=== PATIENT | female | born 1955 | race Caucasian/White ===

== ENCOUNTER 2017-02-17 08:09 | Inpatient (IN) | payer OTHER ==
[~2017-02-17] VITALS: Ht 170.2 cm; Wt 83.5 kg
[2017-02-17] MEDS ORDERED: HYDR12.55 PO (08:23)
[2017-02-17] MEDS ORDERED: BUPR75TA5 PO (08:23)
[2017-02-17] MEDS ORDERED: ATOR1TAB21 PO (08:23)
[2017-02-17] MEDS ORDERED: OMEP40CA2 PO (08:23)
[2017-02-17] MEDS ORDERED: GABA-283 PO (08:23)
[2017-02-17] MEDS ORDERED: VENL100T PO (08:23)
[2017-02-17] MEDS ORDERED: LISI40TAB PO (08:23)
[2017-02-17] MEDS ORDERED: ONDANSETRON 4MG/2ML VIAL (J2405) IV ONE (08:45)
[2017-02-17] MEDS ORDERED: NS 1,000 ML IV ONE (08:45)
[2017-02-17] MEDS ORDERED: fentaNYL 100 MCG/2 ML INJECTION (J3010) IV ONE (08:45)
[2017-02-17] MEDS ORDERED: PANTOPRAZOLE 40MG INJ (PROTONIX) (C9113) IV ONE (08:45)
[2017-02-17 09:20] LABS: BASO % 0.3 % (0.0-1.0); EOS # 0.1 K/mm3 (0.0-0.50); EOS % 0.4 % (0.0-3.0); LARGE UNSTAINED CELL # 0.2 K/mm3 (0.0-0.4); LARGE UNSTAINED CELL % 1.1 % (0.0-4.0); LYMPH # 2.4 K/mm3 (1.5-4.5); LYMPH % 14.5 % (24.0-44.0); MEAN CORPUSCULAR HEMOGLOBIN 29.8 pg (27.0-33.0); MEAN CORPUSCULAR HGB CONC 33.8 g/dl (32.0-36.5); MEAN CORPUSCULAR VOLUME 88.1 fl (80.0-96.0); MONO # 0.8 K/mm3 (0.0-0.8); MONO % 4.7 % (0.0-5.0); NEUTROPHILS # 12.8 K/mm3 (1.8-7.7); PLATELET COUNT, AUTOMATED 399 k/mm3 (150-450); RED CELL DISTRIBUTION WIDTH 13.8 % (11.5-14.5); WHITE BLOOD COUNT 16.3 K/mm3 (4.0-10.0)
[2017-02-17 09:21] LABS: ADD MORPHOLOGY? NO
[2017-02-17 09:28] LABS: INR 0.94
[2017-02-17 09:35] LABS: ALBUMIN 3.7 GM/DL (3.2-5.2); ALBUMIN/GLOBULIN RATIO 1.03 (1.00-1.93); ALKALINE PHOSPHATASE 82 U/L (45-117); ALT/SGPT 18 U/L (12-78); ANION GAP 8 MEQ/L (8-16); AST/SGOT 14 U/L (15-37); BILIRUBIN,DIRECT < 0.1 MG/DL (0.0-0.2); BILIRUBIN,TOTAL 0.3 MG/DL (0.2-1.0); BLOOD UREA NITROGEN 27 MG/DL (7-18); CALCIUM LEVEL 9.3 MG/DL (8.5-10.1); CARBON DIOXIDE LEVEL 24 MEQ/L (21-32); CHLORIDE LEVEL 105 MEQ/L (98-107); CREATININE FOR GFR 1.15 MG/DL (0.55-1.02); GLOMERULAR FILTRATION RATE 51.4 (>51); GLUCOSE, FASTING 129 MG/DL (70-105); POTASSIUM SERUM 3.7 MEQ/L (3.5-5.1); SODIUM LEVEL 137 MEQ/L (136-145); TOTAL PROTEIN 7.3 GM/DL (6.4-8.2)
[2017-02-17] MEDS ORDERED: ISOVUE-370 76% 100ML VIAL (Q9967) As Ordered ONE (09:48)
--- NOTE | 2017-02-17 10:46 | REP ---
Clinical: Diffuse lower abdominal pain and rectal bleeding. Technique: Axial contrast enhanced images from the lung bases to the pubic symphysis using 100 ml Isovue 370 intravenous contrast material with coronal and sagittal re-formations. Findings: Acute infectious/inflammatory colitis involving the transverse colon. No obstruction. No free air. No free fluid or drainable collection/abscess. Scattered colonic diverticula noted without acute diverticulitis. Normal terminal ileum and appendix identified in the right lower quadrant. Liver demonstrates multiple hypodensities most compatible with cysts measuring up to 3.5 cm in the posterior segment right lobe. Cholelithiasis noted without acute cholecystitis. Spleen, pancreas, bilateral adrenal glands are normal. Kidneys include hypodensities which likely represent cysts and may be followed by ultrasound. Pelvis demonstrates normal bladder and evidence for prior hysterectomy. No ascites. No free air. No adenopathy. Vasculature without aneurysm or dissection. Surrounding musculoskeletal structures are intact. Lung bases are clear. Impression: Acute infectious/inflammatory colitis involving the transverse colon. Diverticulosis without acute diverticulitis. Cholelithiasis. Signed by Lupillo Kaur MD 02/17/2017 10:37 A
[2017-02-17] MEDS ORDERED: cefTRIAXone SOD 1 GM in D5W MINI-BAG PLUS 50 ML IV ONE (11:15)
[2017-02-17] MEDS ORDERED: metroNIDAZOLE 500 MG in APPROPRIATE DILUENT 1 EA IV ONE (11:15)
[2017-02-17] MEDS ORDERED: EFFE75CA75 PO (11:16)
[2017-02-17] MEDS ORDERED: HYDR25TAB PO (11:16)
[2017-02-17] MEDS ORDERED: NEUR800T PO (11:16)
[2017-02-17] MEDS: ONDANSETRON 4MG/2ML VIAL (J2405) IV PRN (12:49)
[2017-02-17 13:35] VITALS: BP 182/96
[2017-02-17] MEDS: NS 1,000 ML IV SCH (13:54)
[2017-02-17] MEDS: ATORVASTATIN 20 MG TAB PO SCH (14:07)
[2017-02-17] MEDS: amLODIPine 5 MG TAB PO SCH (14:07)
[2017-02-17] MEDS: OMEPRAZOLE 20 MG CAP PO SCH (14:07)
[2017-02-17] MEDS: MORPHINE 2 MG/ML 1ML SYRINGE IV PRN ×2 (14:08→19:59)
[2017-02-17 14:34] LABS: FERRITIN 19 NG/ML (8-252); PERCENT SATURATION 11.7 % (13.2-37.4); TOTAL IRON BINDING CAPACITY 368 UG/DL (250-450)
[2017-02-17 14:42] LABS: ERYTHROCYTE SEDIMENTATION RATE 49 mm/hr (0-30)
--- NOTE | 2017-02-17 14:57 | HPE ---
DATE OF ADMISSION: 02/17/2017 PRIMARY CARE PHYSICIAN: ANIKA Richardson PRIMARY SUBSTANCE ABUSE COUNSELOR: [facility] at [facility] in [place]. CHIEF COMPLAINT: Hematochezia and abdominal pain. HISTORY OF PRESENT ILLNESS: Ms. Machuca is a 61-year-old female with multiple past medical history who presented due to experiencing hematochezia as well as abdominal pain, which started last night around 10-11 p.m. The patient expressed that she has been diagnosed with Crohn's 4 years ago however she has not received treatment. The patient expressed that she had several colonoscopies done when she was in [place], [place]. Colonoscopies started at age 42 since her mother was diagnosed with colon cancer at age 50. They were performed every three years and each time they removed polyps which most of them were benign or precancerous. The patient's last colonoscopy was in 2012. However they did not indicated Crohn' s. The patient expressed that she was diagnosed based on her symptoms and they did perform any diagnostic tests for Crohn's disease The patient expressed that she has been experiencing abdominal pain, constipation and diarrhea for many year; however, according to her boyfriend, her symptoms became worse for the past several months. The patient has lost about 30 pounds for the past 3 months intentionally since she wants to lose weight, and she tried to do that by doing more exercise as well as cutting back on her carbohydrate and food intake. The patient expressed that yesterday around 10-11 p.m. she started having excruciating abdominal pain, mostly scattered throughout the abdomen. The patient expressed that she was also experiencing diarrhea every hour which at first was watery and brownish colored. However, around 7:00 a.m. she started noticing blood in her stool. The patient expressed that it was red, fresh blood. At first she thought it was because of the hemorrhoids that she has, however it continued and the patient came to the ER. The patient also expressed that she was nauseated, however, the patient denies vomiting. The patient denies any new diet and last night the patient had hot roast beef, which her boyfriend got from the store earlier. The patient denies using canned foods recently. The patient denies sick contacts. The patient denies fevers, chills or night sweats, however, the patient expressed that she felt lightheaded and dizziness after the diarrhea started. She also reported one episode of syncope when she was walking after several episodes of diarrhea; however, her boyfriend caught her and prevented her from falling. The patient expressed that it was only for 1 to 2 seconds, however she regained consciousness without being confused. The patient denies chest pain, palpitations, racing or skipping heartbeat. However, at the time of interview, the patient expressed that she had mild chest pain, possibly secondary to abdominal pain. She expressed that recently had video conference with the senior software development manager at [facility] who inform her that her GI symptoms could be related to her psychiatrical issues. ALLERGIES: No known drug allergies. HOME MEDICATIONS: - atorvastatin 20 mg by mouth daily - bupropion 75 mg by mouth at bedtime - gabapentin 800 mg by mouth at bedtime - chlorthalidone 25 mg by mouth daily - lisinopril 40 mg by mouth daily - omeprazole 40 mg by mouth daily - Effexor XR 225 mg by mouth daily PAST MEDICAL HISTORY: 1. Migraines. 2. Hypertension. 3. Questionable Crohn's disease. 4. Joint pain. 5. Broken jaw. 6. Mitral valve prolapse. 7. Anemia. 8. PTSD 9. Depression 10. Anxiety PAST SURGICAL HISTORY: 1. Vaginal hysterectomy. 2. Dilatation and curettage. 3. Multiple colonoscopies. The last one was in 2012 in [place], [place]. SOCIAL HISTORY: Patient lives with her boyfriend. Patient denies history of smoking. Patient does not drink at this time. Her last drink was a year and a half ago, however, before that the patient was drinking occasionally. Patient expressed that she smokes marijuana every night which helped her with her pain and her boyfriend mentioned that last night her pain was so bad that he gave the patient one dose of hydrocodone which helped her with the pain for three hours. The patient has one dog. The patient has not traveled outside of the [place]. The patient tried to eat healthy and tried to lose weight. The patient has two sons, ages 38 and 36 years old who are healthy. FAMILY HISTORY: The patient has three brothers. One of her brothers is admitted to [facility] due to prescription drug overdose. The other two brothers are healthy. The patient's mother in 2010 due to Alzheimer's. However, she had colon cancer, was diagnosed at age 50. The patient's father had stomach issues as well as a heart attack and at age 54. REVIEW OF SYSTEMS: GENERAL: The patient denies fever, chills, night sweats, however, the patient lost 30 pounds in three months intentionally. HEENT: Patient has lightheadedness and dizziness when she stands up from the sitting position. The patient had one episode of almost syncope early this morning. The patient denies problems with chewing food. The patient, however, has lost her appetite. NECK: The patient denies lumps, bumps, or decreased range of motion of her neck. HEART: Patient denies palpitations, racing and skipping heartbeat, however, the patient has some chest discomfort, which she described it as possibly related to her abdominal pain. ABDOMEN: The patient expressed that the pain is in all abdominal quadrants, 10 out of 10, sharp with radiation to the back. The patient has hematochezia, however, the patient denies vomiting, however, the patient has nausea. LUNGS: Patient denies shortness of breath, coughing. NEURO: Patient denies history of transient ischemic attack (TIA), cerebrovascular accident (CVA), or seizure type activities. PHYSICAL EXAMINATION: VITAL SIGNS: Temperature 97.8, pulse 86, respiratory rate 16, blood pressure 173/108, pulse 93. GENERAL APPEARANCE: Patient was lying in bed in acute distress due to abdominal pain. Patient was awake, alert and oriented to time, place and person. HEENT: Normocephalic, atraumatic. Pupils are equally reactive to light. Oral mucosa is moist. NECK: Soft, supple. No lymphadenopathy, no thyromegaly, no jugular venous distention (JVD). HEART: Regular rate and rhythm. Normal S1 and S2. LUNGS: Clear breath sounds bilaterally, good air movement. ABDOMEN: Soft. Tender to palpation in all quadrants, however, no guarding or rebound was noticed. No rash or lesions. Patient has positive bowel sounds in all quadrants. EXTREMITIES: No lower extremity edema. +2 pulses in both lower extremities. The patient has normal range of motion both upper and lower extremities. NEURO: Cranial nerves II through XII intact. No focal deficiencies. LABORATORY DATA: White blood cells 16.3, red blood cells 4.25, hemoglobin 12.7, hematocrit 37.5, MCV 88.1, MCH 29.8, MCHC 33.8, RDW 13.8, platelet count 399, neutrophil percentage 79, lymphocyte percentage 14.6, monocyte percentage 4.7, eosinophil percentage 0.4, basophil percentage 0.3, leukocyte percentage 1.1. PT 12.7, INR 0.94, PTT 30.9. Sodium 137, potassium 3.7, chloride 105, carbon dioxide 24, anion gap 8, BUN 27, creatinine 1.15, glomerular filtration rate (GFR) 51.4, fasting glucose 129, lactic acid 1.7, calcium 9.3, total bilirubin 0.3, direct bilirubin 7.1, AST 14, ALT 16, alkaline phosphatase 82, total protein 7.3, albumin 3.7, lipase 160. IMAGING: CT of abdomen and pelvis with IV contrast which indicated acute inflammation and inflammatory colitis involving the transverse colon. Patient has diverticulosis without acute diverticulitis as well as cholelithiasis. ASSESSMENT/PLAN: 1. Abdominal pain/hematochezia. This is possibly secondary to ischemic colitis vs. IBS however she has questionable diagnosis of Crohn's disease. We have ordered ESR, C-reactive protein as well as iron and B12. Lipase was negative. Although for inflammatory bowel disease ASCA and ANCA are note diagnostic test , however we have ordered these tests to monitor their level. Also, I have ordered stool calprotectin. At this time, we will make the patient nothing by mouth. We will start the patient on IV fluids. We have consulted surgery and we are waiting for further recommendations from surgery. Due to the patient having hematochezia, we have ordered hemoglobin and hematocrit every 6 hours. For pain management, we will continue the patient on Percocet and morphine as needed. Also due to the possibility of infection, I have ordered gastrointestinal (GI) panel and the results are pending at this time. At the ER, the patient received one dose of Flagyl and Rocephin. At this time, will continue the patient on Flagyl and Rocephin. 2. Hypertension. At home, patient was on lisinopril 40 mg daily as well as hydrochlorothiazide 25 mg by mouth daily, however we have stopped these medications due to abnormal renal functions and diarrhea and we have started the patient on Norvasc 5 mg by mouth daily. 3. Migraines. At this time, the patient is stable. 4. Hyperlipidemia. Will continue the patient on Lipitor 20 mg by mouth daily. 5. Lower extremities pain. The patient is on gabapentin 800 mg by mouth at bedtime. 6. Deep vein thrombosis (DVT) prophylaxis. We will continue the patient on thromboembolic deterrent stockings (TEDS) and sequentials due to gastrointestinal (GI) bleeding. 7. GI prophylaxis. Patient is on omeprazole 40 mg by mouth daily due to GI bleeding. 9. PTSD. patient is on Effexor and bupropion. 10. Depression/Anxiety. she is on Effexor and bupropion My preceptor for this patient encounter was Dr. Boo Mallory. The preceptor was physically present in the building during the encounter and was fully available. As needed, all aspects of the patient interview, examination, medical decision making process, and medical care plan development were reviewed and approved by the preceptor. The preceptor is aware and concurs with the plan as stated in the body of this note and will attest to such by his/her cosignature. I, Boo Mallory, have both independently examined this patient as well as reviewed the documentation. I have discussed in detail with the resident the findings and plan of treatment as documented in the residents documentation. I will continue to follow the patient and offer further guidance to the patients care as necessary. JUVENCIO
--- NOTE | 2017-02-17 15:12 | ECGEPIP ---
Stationary ECG Study [facility] Test Date: 2017-02-17 Pat Name: SHER VALDOVINOS Department: Room: [facility] Gender: F Pharmacy Services Representative: bridgette : 1955 Requested By: OMAR WALLACE Order Number: [id number] Reading MD: Portia Marsh Measurements Intervals [place] Rate: 56 P: 5 NC: 158 QRS: 3 QRSD: 88 T: 15 QT: 418 QTc: 405 Interpretive Statements SINUS BRADYCARDIA WNL EXCEPT RATE NO PRIOR Electronically Signed On 02-17-2017 15:11:59 EDT by Portia Marsh
[2017-02-17] MEDS: VENLAFAXINE **XR** 75MG CAPSULE PO SCH (15:40)
[2017-02-17] MEDS: PERCOCET 5MG/325MG TAB PO PRN (15:40)
[2017-02-17 16:00] VITALS: BP 168/99
--- NOTE | 2017-02-17 17:46 | CR ---
DATE OF CONSULTATION: 02/17/2017 REASON FOR CONSULTATION: Rectal bleeding. HISTORY OF PRESENT ILLNESS: The patient is a very pleasant 61-year-old woman who obtains most of her medical care through the [facility]. She reports that on the evening of February 16 at perhaps 10 o'clock in the evening, she noted the onset of some abdominal cramping with the onset of diarrhea. She reports having had watery diarrhea about every couple hours overnight. Then at about 7 o'clock in the morning on February 17, she had a small amount of diarrhea but also noted passage of some red blood. She was concerned by this new onset of bleeding. She apparently contacted the [facility] for guidance and was directed to the emergency department. She presented to the emergency department complaining of a constant sensation of bloating and crampiness with severe abdominal cramping before any bowel movement. She reports having had about five times total where she passed blood. On occasion this appeared more to contain some clots but also with red blood. She denies any prior history of similar bleeding. She has had several prior colonoscopies because of a history of colon cancer in her mother at age 50. Her last prior scope was in 2012, and she reports having had some polyps removed. She apparently has been told she has diverticulosis. She has been noted to have hemorrhoids during her colonoscopies but has not had any symptoms. She has told other providers of a possible history of Crohn's disease but admits that there has been no testing for this and she has never received any treatment for Crohn' s disease. In the emergency department, she had a set of laboratory studies showing a white count of 16,000 with 79% neutrophils and a hematocrit of 37%. Platelet count was normal. She had a CT scan that showed some thickening in her distal transverse colon. This was a fairly short segment, perhaps 15-20 cm, that was quite thickened circumferentially. Proximal and distal to this there were no significant changes identified. She was noted to have some diverticulosis elsewhere. The patient was admitted by the hospitalist, but I was asked by the emergency department physician to also evaluate the patient. MEDICATIONS The patient's current medications include: - lisinopril 40 mg by mouth daily - hydrochlorothiazide 25 mg by mouth daily - atorvastatin 20 mg by mouth daily - omeprazole 40 mg by mouth daily - bupropion hydrochloride 75 mg by mouth daily at bedtime - venlafaxine 75 mg tablets, three tablets by mouth daily - gabapentin 800 mg tablets once daily at bedtime ALLERGIES The patient denies any known drug allergies. SURGICAL HISTORY: Significant for treatment for a broken jaw as a youth. She had a dilation and curettage (D and C). She has undergone a vaginal hysterectomy and reports that her ovaries remain in place. She has not had any abdominal surgery otherwise. She has had several colonoscopies as noted previously. MEDICAL HISTORY The patient reports that she was told of a degree of mitral valve prolapse. She has not had any symptoms apparently associated with this. Her medical history includes a history of migraines. She has a history of hypertension. She does have a history of some joint pains and has previously had a diagnosis of anemia. SOCIAL HISTORY The patient is a lifetime nonsmoker. The patient denies any alcohol intake currently. She does apparently have a history of smoking some marijuana. FAMILY HISTORY The patient's mother at age 82 from Alzheimer's, but had been diagnosed with colon cancer and age 50. The patient's father had of a myocardial infarction (SD) in his mid 50s. REVIEW OF SYSTEMS Reveals no history of seizure or stroke. She denies any chest pain or palpitations. She has had no cough, wheezing or sputum production. She has had some occasional diarrhea in the past, but not with the severe cramping pain that she has now. She denies any dysuria or hematuria. She has not had a history of deep venous thrombosis (DVT) or pulmonary embolus. PHYSICAL EXAMINATION: GENERAL: Physical exam reveals a pleasant woman lying quietly on the hospital bed in no acute distress. She is alert, oriented and cooperative. SKIN: Is warm and dry. HEENT: Sclerae are anicteric. Mucous membranes are moist. NECK: Supple. HEART: Exam shows a regular rate and rhythm. LUNGS: Clear to auscultation. ABDOMEN: The abdomen is mildly full. She has positive bowel sounds throughout. She has no tympany to percussion. There is some minimal tenderness to percussion, which seems to be fairly diffuse and nonfocal. The abdomen is soft throughout without appreciable mass. Again, there is some mild diffuse tenderness but no point tenderness and no masses appreciated. I do not identify a hernia. EXTREMITIES: Are without edema. LABORATORY DATA: Her laboratory studies from early in the day show a CBC with white count of 16,000, and 79% neutrophils with 14% lymphocytes. Hemoglobin is 13 with a hematocrit of 38, and her platelet count is 399,000. Her PT/INR and PTT are normal. Her chemistry profile shows a sodium of 137, potassium 3.7, chloride 105, CO2 of 24, BUN of 27, creatinine 1.15 and glucose of 129. Liver function tests are normal with an albumin of 3.7 and total protein of 7.3. Lipase was 160. C-reactive protein was only 1.12. She had a troponin of less than 0.02 at 1417 today. IMAGING: Her CT images I reviewed independently. She has an inflamed segment of her distal transverse colon. There is no evidence of free air or free fluid. IMPRESSION: 1. Sudden onset of abdominal cramping with diarrhea and now rectal bleeding. This history sounds quite typical for ischemic colitis. 2. Hypertension. 3. Hyperlipidemia. 4. Migraine headaches. RECOMMENDATIONS: At this point I would recommend close observation of the patient's bleeding. If this represents typical ischemic colitis, then I would anticipate that the bleeding will cease spontaneously and her symptoms will resolve and her colon will heal. Certainly there is nothing about her history to suggest ulcerative colitis or Crohn's disease as an acute onset at this time. Antibiotics are not an unreasonable addition to her treatment, given the possibility that this could also represent some form of infectious colitis, although with the fairly limited extent of involvement, I think this is a little less likely than an ischemic colitis event. I will be happy to check on the patient tomorrow and see how things are progressing. I doubt that she will require any sort of surgical intervention during this hospital stay. JUVENCIO
[2017-02-17 18:38] VITALS: BP 148/99
[2017-02-17 20:00] VITALS: BP 148/98
[2017-02-17] MEDS: GABAPENTIN 400 MG CAP PO SCH (20:07)
[2017-02-17] MEDS: buPROPion 75 MG TAB PO SCH (20:12)
[2017-02-17] MEDS: metroNIDAZOLE 500 MG in APPROPRIATE DILUENT 1 EA IV SCH (22:39)
[2017-02-17 23:59] VITALS: BP 143/96
[2017-02-18] MEDS: ACETAMINOPHEN TAB 650MG DOSE (2X325MG) PO PRN ×2 (00:32→16:06)
[2017-02-18] MEDS ORDERED: cefTRIAXone SOD 1 GM in D5W MINI-BAG PLUS 50 ML IV SCH (02:00)
[2017-02-18 04:45] VITALS: BP 135/91
[2017-02-18 05:15] LABS: BASO % 0.3 % (0.0-1.0); EOS # 0.1 K/mm3 (0.0-0.50); EOS % 0.8 % (0.0-3.0); LARGE UNSTAINED CELL # 0.2 K/mm3 (0.0-0.4); LARGE UNSTAINED CELL % 0.9 % (0.0-4.0); LYMPH # 2.3 K/mm3 (1.5-4.5); LYMPH % 12.8 % (24.0-44.0); MEAN CORPUSCULAR HEMOGLOBIN 29.6 pg (27.0-33.0); MEAN CORPUSCULAR HGB CONC 33.5 g/dl (32.0-36.5); MEAN CORPUSCULAR VOLUME 88.2 fl (80.0-96.0); MONO % 5.7 % (0.0-5.0); NEUTROPHILS # 13.3 K/mm3 (1.8-7.7); NEUTROPHILS % 79.5 % (36.0-66.0); PLATELET COUNT, AUTOMATED 335 k/mm3 (150-450); RED CELL DISTRIBUTION WIDTH 13.9 % (11.5-14.5); WHITE BLOOD COUNT 16.8 K/mm3 (4.0-10.0)
[2017-02-18 05:33] LABS: ALBUMIN 3.3 GM/DL (3.2-5.2); ALBUMIN/GLOBULIN RATIO 0.83 (1.00-1.93); ALKALINE PHOSPHATASE 75 U/L (45-117); ALT/SGPT 15 U/L (12-78); ANION GAP 5 MEQ/L (8-16); AST/SGOT 8 U/L (15-37); BILIRUBIN,TOTAL 0.4 MG/DL (0.2-1.0); BLOOD UREA NITROGEN 11 MG/DL (7-18); CALCIUM LEVEL 8.1 MG/DL (8.5-10.1); CARBON DIOXIDE LEVEL 30 MEQ/L (21-32); CHLORIDE LEVEL 106 MEQ/L (98-107); CREATININE FOR GFR 0.83 MG/DL (0.55-1.02); GLOMERULAR FILTRATION RATE > 60.0 (>51); GLUCOSE, FASTING 123 MG/DL (70-105); MAGNESIUM LEVEL 1.9 MG/DL (1.8-2.4); POTASSIUM SERUM 3.6 MEQ/L (3.5-5.1); SODIUM LEVEL 141 MEQ/L (136-145); TOTAL PROTEIN 7.3 GM/DL (6.4-8.2)
[2017-02-18 05:38] LABS: ERYTHROCYTE SEDIMENTATION RATE 58 mm/hr (0-30)
[2017-02-18] MEDS: NS 1,000 ML IV SCH (06:17)
[2017-02-18] MEDS: metroNIDAZOLE 500 MG in APPROPRIATE DILUENT 1 EA IV SCH ×3 (06:17→21:37)
[2017-02-18] MEDS: MEROPENEM INJ 1 GM in D5W MINI-BAG PLUS 100 ML IV SCH ×3 (07:36→23:39)
[2017-02-18] MEDS: MORPHINE 2 MG/ML 1ML SYRINGE IV PRN (07:36)
[2017-02-18] MEDS: ONDANSETRON 4MG/2ML VIAL (J2405) IV PRN (07:53)
[2017-02-18 08:00] VITALS: BP 146/112
--- NOTE | 2017-02-18 10:15 | IPN ---
DATE OF SERVICE: 02/18/2017 The patient this morning reports that she feels better. She has not been having the abdominal cramping that she noted yesterday. She has been passing some flatus and still feels somewhat bloated. She has not had any further rectal bleeding. VITAL SIGNS: Revealed that she has been afebrile for the last 24 hours with a maximum temperature (Tmax) of 99.1 degrees. Her pulse has been between 65 and 95. Her blood pressure is reasonable, and her pulse oximetry is normal on room air. INTAKE AND OUTPUT: Show 1700 mL in and 1200 mL out on 02/17/2017. PHYSICAL EXAMINATION: Reveals her to be pleasant and alert. She does not appear in discomfort. She moves readily without apparent hesitation. Her abdomen is perhaps mildly distended versus mildly obese. She has bowel sounds present. The abdomen is soft without definite tenderness. LABORATORY STUDIES: Reveal a white count of 16.8, similar to her level on 02/17/2017 of 16.3. Hematocrit is 36, and her neutrophil count is 80%, also similar to the number on 02/17/2017. Her chemistry profile is normal with the exception of a slight elevation of her glucose to 123. C-reactive protein is 7.16, which is mildly elevated from 1.12 on 02/17/2017. She had a lactic acid this morning of 1.5. IMPRESSION: Ischemic colitis without any further bleeding. RECOMMENDATIONS: At this point, the patient appears to be improving. I would anticipate this episode to continue to improve with healing of that segment of her transverse colon. I would be in favor of starting her on some liquids if her testing as ordered by the hospitalist will allow. JUVENCIO
[2017-02-18] MEDS ORDERED: ISOVUE-370 76% 100ML VIAL (Q9967) As Ordered ONE (10:18)
[2017-02-18] MEDS: ATORVASTATIN 20 MG TAB PO SCH (11:17)
[2017-02-18] MEDS: VENLAFAXINE **XR** 75MG CAPSULE PO SCH (11:17)
[2017-02-18] MEDS: OMEPRAZOLE 20 MG CAP PO SCH (11:17)
[2017-02-18] MEDS: amLODIPine 5 MG TAB PO SCH (11:18)
[2017-02-18] MEDS: PERCOCET 5MG/325MG TAB PO PRN ×2 (11:21→20:25)
[2017-02-18 12:00] VITALS: BP 146/101
--- NOTE | 2017-02-18 13:24 | REP ---
Clinical: Colitis. Rule out ischemic bowel. Technique: Axial contrast enhanced images from the lung bases to the pubic symphysis using 100 ml Isovue 370 intravenous contrast material with imaging in the late arterial phase of enhancement. Coronal and sagittal re-formations are obtained. Comparison: CT abdomen and pelvis dated 02/17/2017. Findings: The abdominal aorta and branch vessels including celiac axis, superior mesenteric artery, solitary bilateral renal arteries, inferior mesenteric artery and bifurcation to common as well as internal and external iliac arteries demonstrate normal luminal diameter and enhancement. No atherosclerotic changes are appreciated and no areas of narrowing, stenosis, or arterial attenuation appreciated. The abdominal aorta is without aneurysm or dissection. Liver demonstrates stable right lobe hypodensity measuring 3.3 cm compatible with cyst and smaller subcentimeter cysts without focal hepatic lesion. Spleen, pancreas, bilateral adrenal glands are normal. Small renal hypodensities compatible with cysts measure up to 1.6 cm in the left lower pole. Cholelithiasis noted without CT evidence for acute cholecystitis. Evaluation of the enteric system demonstrates mural thickening and pericolonic inflammatory changes involving the transverse colon consistent with infectious/inflammatory colitis. No bowel obstruction. No free air. No significant free fluid or drainable collection. Pelvis demonstrates collapsed bladder and evidence of prior hysterectomy. Few scattered sigmoid diverticula noted without acute diverticulitis. No intraperitoneal or retroperitoneal adenopathy. Lung bases are clear. Visualized heart and pericardium normal. Small hiatal hernia at the gastroesophageal junction. Surrounding musculoskeletal structures are intact. Impression: 1. Normal enhancement and appearance to the aorta and arterial vasculature within the abdomen and pelvis. 2. Infectious/inflammatory colitis involving the transverse colon. 3. Small hiatal hernia. 4. Chronic changes including hepatic and renal cysts, and few scattered sigmoid diverticula without acute diverticulitis. Signed by Lupillo Kaur MD 02/18/2017 01:17 P
--- NOTE | 2017-02-18 14:37 | IPNPDOC ---
Text Note Date of Service The patient was seen on 02/18/17. NOTE Subjective: Patient is a 61 year old female with a PMHx of HTN, Mitral valve prolapse, Migraine, Anemia, Depression / Anxiety / PTSD and Questionable Crohn' s Disease who presented to the ER with complaints of abdominal pain and rectal bleeding. Patient has had several colonoscopies in the past, most recent of which is 2012 and was found to have pre-cancerous lesions that were removed. She noted that after this point she had similar symptoms a few years later and was told she had Crohn's, but no biopsies taken. She presented with abdominal pain, that progressed to diarrhea with blood in her stool. She was admitted for colitis and hospitalist service was called. Patient was seen and examined at the bedside. She notes her abdominal pain has been improving. She has not had a bowel movement today. Notes that she is passing gas. She did not a single episode of vomiting this morning. Objective: Vitals (See below) General: Lying in bed, no acute distress, comfortable, AAOx3 HEENT: NC, AT CVS: RRR, +S1S2 Lungs: Fair air entry b/l, -w/r/r Abdomen: Soft, ND, NT, +BSx4 Extremities: +PPx4, - Edema, - Calf tenderness Assessment and plan: 1. Abdominal pain with rectal bleeding - possibly 2/2 Colitis, Inflammatory bowel disease, Ischemic colitis - Presented with abdominal pain, bloody diarrhea - Physical initially revealed diffuse abdominal tenderness without rebound / rigidity that has resolved - Leukocytosis has persisted and CRP has trended up - Cultures remain negative, GI panel negative - CTA abdomen / pelvis 02/18: infectious / inflammatory colitis involving the transverse colon, no diverticulitis, positive diverticulosis, normal aorta and vasculature - s/p Ceftriaxone and Flagyl; c/w Meropenem (Day #2 of antibiotics) - c/w IV fluid hydration - Will start liquid clear diet today and advance as tolerated - Will discontinue Morphine, c/w Percocet - Dr. Desai (Surgery) on consult; appreciate their input 2. HTN - BP moderately controlled - Lisinopril and HCTZ on hold (re: mild elevation in Cr) - c/w Norvac 5; will increase to 10 3. Migraine headaches - c/w Tylenol PRN 4. DLP - c/w Lipitor 5. Neuropathy - c/w Gabapentin 6. PTSD / Depression / Anxiety - c/w Venlafaxine and Bupropion 7. GI prophylaxis - c/w Protonix 8. DVT prophylaxis - c/w SCDs VS,Fishbone, I+O VS, Fishbone, I+O Laboratory Tests 02/17/17 18:53 02/18/17 00:23 02/18/17 04:55 Red Blood Count 4.03, Mean Corpuscular Volume 88.2, Mean Corpuscular Hemoglobin 29.6, Mean Corpuscular Hemoglobin Concent 33.5, Red Cell Distribution Width 13.9 , Neutrophils (%) (Auto) 79.5 H, Lymphocytes (%) (Auto) 12.8 L, Monocytes (%) ( Auto) 5.7 H, Eosinophils (%) (Auto) 0.8, Basophils (%) (Auto) 0.3, Neutrophils # (Auto) 13.3 H, Lymphocytes # (Auto) 2.3, Monocytes # (Auto) 1.0 H, Eosinophils # (Auto) 0.1, Basophils # (Auto) 0.0, Calcium Level 8.1 L, Aspartate Amino Transf (AST/SGOT) 8 L, Alanine Aminotransferase (ALT/SGPT) 15, Alkaline Phosphatase 75, Total Bilirubin 0.4, Total Protein 7.3, Albumin 3.3 02/18/17 12:38 Vital Signs Date Time Temp Pulse Resp B/P (MAP) Pulse Ox O2 Delivery O2 Flow Rate FiO2 02/18/17 12:00 98.0 76 18 146/101 (116) 98 Room Air I&O- Last 24 Hours up to 6 AM 02/18/17 06:00 Intake Total 2380 ml Output Total 1200 ml Balance 1180 ml ANGELA DELACRUZ MD Feb 18, 2017 14:37
[2017-02-18] MEDS ORDERED: NS 1,000 ML IV SCH (14:45)
[2017-02-18 16:00] VITALS: BP 146/102
[2017-02-18 20:10] VITALS: BP 121/85
[2017-02-18] MEDS: buPROPion 75 MG TAB PO SCH (20:25)
[2017-02-18] MEDS: GABAPENTIN 400 MG CAP PO SCH (20:26)
[2017-02-19] VITALS (7 sets, daily range): BP systolic 139–158; BP diastolic 84–95
[2017-02-19] MEDS: metroNIDAZOLE 500 MG in APPROPRIATE DILUENT 1 EA IV SCH (05:11)
[2017-02-19 05:25] LABS: BASO % 0.2 % (0.0-1.0); EOS # 0.2 K/mm3 (0.0-0.50); EOS % 0.7 % (0.0-3.0); LARGE UNSTAINED CELL # 0.2 K/mm3 (0.0-0.4); LARGE UNSTAINED CELL % 0.9 % (0.0-4.0); LYMPH # 2.3 K/mm3 (1.5-4.5); LYMPH % 10.7 % (24.0-44.0); MEAN CORPUSCULAR HEMOGLOBIN 29.8 pg (27.0-33.0); MEAN CORPUSCULAR HGB CONC 33.9 g/dl (32.0-36.5); MEAN CORPUSCULAR VOLUME 88.1 fl (80.0-96.0); MONO # 0.8 K/mm3 (0.0-0.8); NEUTROPHILS # 16.4 K/mm3 (1.8-7.7); NEUTROPHILS % 83.6 % (36.0-66.0); PLATELET COUNT, AUTOMATED 319 k/mm3 (150-450); RED CELL DISTRIBUTION WIDTH 14.1 % (11.5-14.5); WHITE BLOOD COUNT 19.6 K/mm3 (4.0-10.0)
[2017-02-19 05:36] LABS: ALBUMIN 2.9 GM/DL (3.2-5.2); ALBUMIN/GLOBULIN RATIO 0.76 (1.00-1.93); ALKALINE PHOSPHATASE 68 U/L (45-117); ALT/SGPT 15 U/L (12-78); ANION GAP 7 MEQ/L (8-16); AST/SGOT 10 U/L (15-37); BILIRUBIN,TOTAL 0.4 MG/DL (0.2-1.0); BLOOD UREA NITROGEN 6 MG/DL (7-18); CALCIUM LEVEL 7.9 MG/DL (8.5-10.1); CARBON DIOXIDE LEVEL 27 MEQ/L (21-32); CHLORIDE LEVEL 106 MEQ/L (98-107); CREATININE FOR GFR 0.63 MG/DL (0.55-1.02); GLOMERULAR FILTRATION RATE > 60.0 (>51); GLUCOSE, FASTING 114 MG/DL (70-105); MAGNESIUM LEVEL 1.9 MG/DL (1.8-2.4); POTASSIUM SERUM 3.3 MEQ/L (3.5-5.1); SODIUM LEVEL 140 MEQ/L (136-145); TOTAL PROTEIN 6.7 GM/DL (6.4-8.2)
[2017-02-19 06:05] LABS: ERYTHROCYTE SEDIMENTATION RATE 57 mm/hr (0-30)
[2017-02-19] MEDS ORDERED: POTASSIUM CHLORIDE 10 MEQ SR TABLET PO ONE (07:00)
[2017-02-19] MEDS: PERCOCET 5MG/325MG TAB PO PRN ×3 (07:32→20:59)
[2017-02-19] MEDS: ONDANSETRON 4MG/2ML VIAL (J2405) IV PRN (07:32)
[2017-02-19] MEDS: OMEPRAZOLE 20 MG CAP PO SCH (08:31)
[2017-02-19] MEDS: VENLAFAXINE **XR** 75MG CAPSULE PO SCH (08:31)
[2017-02-19] MEDS: amLODIPine 5 MG TAB PO SCH (08:31)
[2017-02-19] MEDS: ATORVASTATIN 20 MG TAB PO SCH (08:31)
[2017-02-19] MEDS: MEROPENEM INJ 1 GM in D5W MINI-BAG PLUS 100 ML IV SCH ×2 (08:32→16:01)
[2017-02-19] MEDS ORDERED: SUMAtriptan SUCCINATE 25 MG TAB PO ONE (09:00)
[2017-02-19] MEDS ORDERED: hydroCHLOROthiazide 12.5 MG CAPSULE PO SCH (09:00)
[2017-02-19] MEDS ORDERED: EFFE150C PO (09:13)
[2017-02-19] MEDS ORDERED: OMEP20CA3 PO (09:13)
[2017-02-19] MEDS ORDERED: BUPR100T3 PO (09:13)
[2017-02-19 10:01] LABS: VITAMIN B12 LEVEL 587 PG/ML (247-911)
[2017-02-19] MEDS ORDERED: SLF 3 ML SYR IV PRN (11:00)
[2017-02-19] MEDS: SLF 3 ML SYR IV SCH ×2 (12:15→21:00)
--- NOTE | 2017-02-19 14:16 | IPN ---
DATE OF VISIT: 02/19/2017 SUBJECTIVE: Ms. Machuca is a 61-year-old who was seen and examined at the bedside. The patient expressed that she feels better today. However, she has continued to have cramping of her abdomen. The patient tolerating full liquid diet well. We have put an order to advance the diet, as the patient tolerated. The patient had one episode of bowel movement today, which has blood in it. The patient has been seen by Dr. Dobbs (general surgeon). At this time, the patient is on intravenous (IV) antibiotic. Yesterday, we have performed a CT angiogram of abdomen and pelvis, which indicated normal enhancement and appearance to the aorta and arterial vasculature within the abdomen and pelvis, and it indicated the possibility of infectious/inflammatory colitis involving the transverse colon. The patient denies nausea or vomiting. The patient denies palpitation, racing or skipping heartbeat, shortness of breath. OBJECTIVE: VITAL SIGNS: Temperature 96.3, pulse 83, respiratory rate 18, blood pressure 158/95, pulse oximetry 97 on room air. TOTAL INTAKE: From yesterday, 2461. TOTAL OUTPUT: 1950. GENERAL APPEARANCE: The patient was lying in bed in acute distress. The patient was awake, alert, and oriented to time, place, and person. HEENT: Normocephalic, atraumatic. Pupils are equally reactive to light. Oral mucosa is moist. NECK: Soft, supple. No lymphadenopathy, no thyromegaly, no jugular venous distention (JVD). HEART: Regular rate and rhythm. Normal S1 and S2. LUNGS: Clear breath sounds bilaterally, good air movement. ABDOMEN: Soft. Tender to palpation, mostly on the lower abdominal quadrants and the left upper quadrant. The patient has positive bowel sounds in all quadrants. EXTREMITIES: +2 pulses in both lower extremities. No lower extremity edema. Normal range of motion both upper and lower extremities. LABORATORY DATA: White blood cells 19.6, red blood cells 3.84, hemoglobin 11.5, hematocrit 33.9, MCV 88.1, MCH 29.8, MCHC 33.9, RDW 14.1, platelet count 319, neutrophil percentage 83.6, lymphocyte percentage 10.7, monocyte percentage 4, eosinophil percentage 0.7, basophil percentage 0.2, leukocyte percentage 0.9. Sodium 140, potassium 3.3, chloride 106, carbon dioxide 27, anion gap 7, BUN 6, creatinine 0.63, glomerular filtration rate more than 60, fasting glucose 114, calcium 7.9, magnesium 1.9, total bilirubin 0.4, AST 10, ALT 15, alkaline phosphatase 68, C-reactive protein 9.52, total protein 6.7, albumin 2.9. IMAGING TECHNIQUE: CT angiogram of abdomen and pelvis, which indicated normal enhancement and appearance to the aorta and arterial vasculature within the abdomen and pelvis, infectious/inflammatory colitis involving the transverse colon, a small hiatal hernia, chronic changes including hepatic and renal cyst and a few scattered sigmoid diverticula without acute diverticulitis. ASSESSMENT/PLAN: 1. Abdominal pain with gastrointestinal (GI) bleeding. This could be secondary to ischemic colitis versus infectious/inflammatory colitis. Today, the patient' s white blood cells, as well as C-reactive protein, has increased. Erythrocyte sedimentation rate (ESR) has not changed much compared to yesterday. We have consulted Dr. Aguero. Also, we have stopped the metronidazole. However, we will continue with meropenem. The patient was on IV fluid. However, we have stopped IV fluid since the patient can tolerate by mouth. At this point, we are waiting for further recommendation from Dr. Aguero; and based on surgery, we are following the patient; and this could be secondary to ischemic colitis, and we have no further recommendation from surgery. For pain management, we will continue the patient on Percocet. Also, the patient is on acetaminophen; and for nausea, we will continue the patient on Zofran. Also, will continue monitoring the patient's hemoglobin and hematocrit one more time. However, at this time, the patient's hemoglobin and hematocrit are stable, and we will continue monitoring the hemoglobin and hematocrit tomorrow. 2. Gastrointestinal (GI) prophylaxis due to GI bleeding. We will continue the patient on Prilosec 40 mg by mouth daily. 3. Hypertension. At this point, we will continue the patient on Norvasc 5 mg by mouth daily. Also, we have restarted the patient on hydrochlorothiazide 12.5 mg by mouth daily. 3. Migraine headaches. Today the patient experienced one episode of migraine headache. The patient was on Tylenol as needed. However, it did not help. Therefore, the patient received one dose of sumatriptan succinate 25 mg by mouth once. We will continue monitoring the patient for any abnormal symptoms. 4. Hyperlipidemia. The patient is on Lipitor. 5. Neuropathy. The patient is on gabapentin. 6. Posttraumatic stress disorder (PTSD). We will continue the patient on venlafaxine and bupropion. 7. Depression and anxiety. We will continue the patient on venlafaxine and bupropion. 8. Deep vein thrombosis (DVT) prophylaxis. Due to gastrointestinal (GI) bleeding, the patient is on thromboembolic deterrents (TEDs) and sequentials. My preceptor for this patient encounter was Boo Mallory MD. The preceptor was physically present in the building during the encounter and was fully available. As needed, all aspects of the patient interview, examination, medical decision making process, and medical care plan development were reviewed and approved by the preceptor. The preceptor is aware and concurs with the plan as stated in the body of this note and will attest to such by his/her cosignature. I, Boo Mallory, have both independently examined this patient as well as reviewed the documentation. I have discussed in detail with the resident the findings and plan of treatment as documented in the residents documentation. I will continue to follow the patient and offer further guidance to the patients care as necessary during this hospital stay. JUVENCIO
[2017-02-19] MEDS: buPROPion (WELLBUTRIN SR) 100 MG SR TAB PO SCH (20:59)
[2017-02-19] MEDS: GABAPENTIN 400 MG CAP PO SCH (21:00)
[2017-02-20 02:00] VITALS: BP 127/84
[2017-02-20] MEDS: SLF 3 ML SYR IV SCH ×3 (05:36→20:49)
[2017-02-20 06:00] VITALS: BP 116/75
[2017-02-20 06:38] LABS: BASO % 0.3 % (0.0-1.0); EOS # 0.3 K/mm3 (0.0-0.50); EOS % 1.4 % (0.0-3.0); LARGE UNSTAINED CELL # 0.2 K/mm3 (0.0-0.4); LARGE UNSTAINED CELL % 1.1 % (0.0-4.0); LYMPH # 2.9 K/mm3 (1.5-4.5); LYMPH % 14.2 % (24.0-44.0); MEAN CORPUSCULAR HEMOGLOBIN 29.4 pg (27.0-33.0); MEAN CORPUSCULAR HGB CONC 32.8 g/dl (32.0-36.5); MEAN CORPUSCULAR VOLUME 89.5 fl (80.0-96.0); MONO # 0.9 K/mm3 (0.0-0.8); MONO % 4.8 % (0.0-5.0); NEUTROPHILS # 14.9 K/mm3 (1.8-7.7); NEUTROPHILS % 78.2 % (36.0-66.0); PLATELET COUNT, AUTOMATED 348 k/mm3 (150-450); RED CELL DISTRIBUTION WIDTH 14.2 % (11.5-14.5); WHITE BLOOD COUNT 19.1 K/mm3 (4.0-10.0)
[2017-02-20] MEDS ORDERED: SUMAtriptan SUCCINATE 25 MG TAB PO ONE (06:45)
[2017-02-20 06:59] LABS: ALBUMIN 3.1 GM/DL (3.2-5.2); ALBUMIN/GLOBULIN RATIO 0.72 (1.00-1.93); ALKALINE PHOSPHATASE 73 U/L (45-117); ALT/SGPT 17 U/L (12-78); ANION GAP 5 MEQ/L (8-16); AST/SGOT 15 U/L (15-37); BILIRUBIN,TOTAL 0.5 MG/DL (0.2-1.0); BLOOD UREA NITROGEN 6 MG/DL (7-18); CALCIUM LEVEL 8.7 MG/DL (8.5-10.1); CARBON DIOXIDE LEVEL 33 MEQ/L (21-32); CHLORIDE LEVEL 100 MEQ/L (98-107); CREATININE FOR GFR 0.77 MG/DL (0.55-1.02); GLOMERULAR FILTRATION RATE > 60.0 (>51); GLUCOSE, FASTING 98 MG/DL (70-105); POTASSIUM SERUM 3.9 MEQ/L (3.5-5.1); SODIUM LEVEL 138 MEQ/L (136-145); TOTAL PROTEIN 7.4 GM/DL (6.4-8.2)
[2017-02-20 07:13] LABS: ERYTHROCYTE SEDIMENTATION RATE 65 mm/hr (0-30)
[2017-02-20] MEDS: VENLAFAXINE **XR** 75MG CAPSULE PO SCH (08:32)
[2017-02-20] MEDS: OMEPRAZOLE 20 MG CAP PO SCH (08:33)
[2017-02-20] MEDS: ATORVASTATIN 20 MG TAB PO SCH (08:33)
[2017-02-20] MEDS: amLODIPine 5 MG TAB PO SCH (08:33)
[2017-02-20] MEDS: PERCOCET 5MG/325MG TAB PO PRN ×3 (08:36→20:56)
--- NOTE | 2017-02-20 08:38 | IPNPDOC ---
Text Note Date of Service The patient was seen on 02/20/17. NOTE Subjective: Patient states she is having full liquid diet and is occasionally not tolerating it. She states that her abdominal pain is significantly improved however still has some residual pain Objective: Vitals: (see below) General: No acute distress, laying comfortably in bed. HEENT: Moist mucous membranes. Neck: No JVD or lymphadenopathy Cardiac: RRR, No murmurs Pulm: Clear to auscultation b/l. No wheezing, rhonchi Abd: Tenderness to palpation in the lower quadrants and left upper quadrant. No rebound, guarding, or rigidity/ND + BS Ext: No edema or cyanosis Labs (see below) Images: CTA abdomen and pelvis on 02/18/17 Impression: 1. Normal enhancement and appearance to the aorta and arterial vasculature within the abdomen and pelvis. 2. Infectious/inflammatory colitis involving the transverse colon. 3. Small hiatal hernia. 4. Chronic changes including hepatic and renal cysts, and few scattered sigmoid diverticula without acute diverticulitis. CT abdomen and pelvis on 02/17/17 Impression: Acute infectious/inflammatory colitis involving the transverse colon. Diverticulosis without acute diverticulitis. Cholelithiasis. Assessment/Plan 1. Abdominal pain and hematochezia secondary to colitis. Evaluated by surgery with a likely etiology of ischemic colitis. Patient did have a CTA of the abdomen and pelvis with no abnormalities with a enhancements of the arterial vasculature. She was initially started on Rocephin and Flagyl and change to meropenem. Dr. Aguero had been consulted as the CRP and WBCs have been worsening, with recommendations to discontinue antibiotics as it is unlikely to be infectious in nature. We will continue to monitor the patient's clinical status. We'll also continue monitoring hemoglobin. No need for transfusion at this time. 2. Hematochezia- likely secondary to colitis. We'll continue to monitor hemoglobin. Had been placed on Protonix. Will likely need outpatient colonoscopy once abdominal pain resolves. 3. Hypertension- controlled. Will discontinue HCTZ for now. 4. History of migraines 5. Hyperlipidemia on statin 6. Neuropathy on gabapentin 7. Postherpetic stress disorder continue home meds DVT prophy: SCDs VS,Fishbone, I+O VS, Fishbone, I+O Laboratory Tests 02/19/17 12:44 02/20/17 05:48 Red Blood Count 4.01, Mean Corpuscular Volume 89.5, Mean Corpuscular Hemoglobin 29.4, Mean Corpuscular Hemoglobin Concent 32.8, Red Cell Distribution Width 14.2 , Neutrophils (%) (Auto) 78.2 H, Lymphocytes (%) (Auto) 14.2 L, Monocytes (%) ( Auto) 4.8, Eosinophils (%) (Auto) 1.4, Basophils (%) (Auto) 0.3, Neutrophils # ( Auto) 14.9 H, Lymphocytes # (Auto) 2.9, Monocytes # (Auto) 0.9 H, Eosinophils # (Auto) 0.3, Basophils # (Auto) 0.0, Calcium Level 8.7, Aspartate Amino Transf ( AST/SGOT) 15, Alanine Aminotransferase (ALT/SGPT) 17, Alkaline Phosphatase 73, Total Bilirubin 0.5, Total Protein 7.4, Albumin 3.1 L Vital Signs Date Time Temp Pulse Resp B/P (MAP) Pulse Ox O2 Delivery O2 Flow Rate FiO2 02/20/17 06:00 97.4 79 16 116/75 (89) 98 Room Air I&O- Last 24 Hours up to 6 AM 02/20/17 05:59 Intake Total 1060 ml Output Total 2525 ml Balance -1465 ml YAJAIRA OLIVAS MD Feb 20, 2017 08:38
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
[2017-02-20 10:27] VITALS: BP 144/97
[2017-02-20 14:00] VITALS: BP 133/94
--- NOTE | 2017-02-20 18:04 | IPN ---
DATE: 02/20/2017 Paulette seems to be doing better. She states she had a bowel movement today that was somewhat semi-formed but did not have as much blood. It was more brown than red. She is hungry. She has been tolerating a soft diet but would like to try some regular food. She has not had any bright red blood per rectum. LABORATORY DATA: White count is 19.1, hemoglobin 11.6, hematocrit 35.9, platelets 348. Sodium 138, potassium 3.9, chloride 100, bicarbonate 33, BUN 6, creatinine 0.7, glucose 98, calcium 8.7, magnesium 2. AST 15, ALT 17, CRP 11, total protein 7.4, albumin 3.1. Blood cultures have been negative. Urine culture negative. Gastrointestinal (GI) panel negative. PHYSICAL EXAMINATION: Temperature is 97.3, pulse 85, respirations 18, blood pressure 133/94, oxygen saturation 96% on room air. HEART: Normal S1, S2 with no murmurs. LUNGS: Clear. No wheezes, rales, or rhonchi. ABDOMEN: Tender mostly in the left lower and left upper quadrant. EXTREMITIES: No edema. IMPRESSION: 1. Colitis with bright red blood per rectum that started after she had a bout of diarrhea. Dr. Dobbs feels it is ischemic colitis. Gastrointestinal (GI) panel has been negative. There has been no infectious disease to suggest infectious disease etiology on polymerase chain reaction (PCR) testing. This continued antibiotic. The patient is feeling better. Please advance her diet to regular. 2. Elevated white count and inflammatory marker, probably related to inflammatory process. I would avoid antibiotics at this time, as she is at risk of Clostridium (C) difficile, if there is no pathogen to treat. 3. History of precancerous polyps and questionable history of Matthew's disease. Will obtain her records from the [facility] [place], [place]. I have discussed the case with Dr. Ortega and Dr. Dobbs, who have agreed to scope her as an outpatient if there is an indication for scope. Infectious disease signing off.
[2017-02-20] MEDS: GABAPENTIN 400 MG CAP PO SCH (20:49)
[2017-02-20] MEDS: buPROPion (WELLBUTRIN SR) 100 MG SR TAB PO SCH (20:49)
[2017-02-20] MEDS ORDERED: ONDANSETRON 4 MG TAB (S0181) PO PRN (21:15)
[2017-02-20 22:00] VITALS: BP 140/91
[2017-02-21 02:00] VITALS: BP 123/81
[2017-02-21 06:00] VITALS: BP 145/91
[2017-02-21 06:11] LABS: BASO # 0.1 K/mm3 (0.0-0.2); BASO % 0.4 % (0.0-1.0); EOS # 0.4 K/mm3 (0.0-0.50); EOS % 2.6 % (0.0-3.0); LARGE UNSTAINED CELL # 0.2 K/mm3 (0.0-0.4); LARGE UNSTAINED CELL % 1.2 % (0.0-4.0); LYMPH % 25.5 % (24.0-44.0); MEAN CORPUSCULAR HEMOGLOBIN 29.8 pg (27.0-33.0); MEAN CORPUSCULAR HGB CONC 33.2 g/dl (32.0-36.5); MEAN CORPUSCULAR VOLUME 89.6 fl (80.0-96.0); MONO # 0.6 K/mm3 (0.0-0.8); MONO % 4.3 % (0.0-5.0); NEUTROPHILS # 9.8 K/mm3 (1.8-7.7); NEUTROPHILS % 66.1 % (36.0-66.0); PLATELET COUNT, AUTOMATED 403 k/mm3 (150-450); RED CELL DISTRIBUTION WIDTH 14.1 % (11.5-14.5); WHITE BLOOD COUNT 14.8 K/mm3 (4.0-10.0)
[2017-02-21 06:28] LABS: ALBUMIN 3.1 GM/DL (3.2-5.2); ALBUMIN/GLOBULIN RATIO 0.78 (1.00-1.93); ALKALINE PHOSPHATASE 74 U/L (45-117); ALT/SGPT 12 U/L (12-78); ANION GAP 4 MEQ/L (8-16); AST/SGOT 9 U/L (15-37); BILIRUBIN,TOTAL 0.3 MG/DL (0.2-1.0); BLOOD UREA NITROGEN 14 MG/DL (7-18); CALCIUM LEVEL 9.1 MG/DL (8.5-10.1); CARBON DIOXIDE LEVEL 32 MEQ/L (21-32); CHLORIDE LEVEL 100 MEQ/L (98-107); CREATININE FOR GFR 0.79 MG/DL (0.55-1.02); GLOMERULAR FILTRATION RATE > 60.0 (>51); GLUCOSE, FASTING 96 MG/DL (70-105); MAGNESIUM LEVEL 2.3 MG/DL (1.8-2.4); POTASSIUM SERUM 3.6 MEQ/L (3.5-5.1); SODIUM LEVEL 136 MEQ/L (136-145); TOTAL PROTEIN 7.1 GM/DL (6.4-8.2)
[2017-02-21 06:45] LABS: ERYTHROCYTE SEDIMENTATION RATE 63 mm/hr (0-30)
--- NOTE | 2017-02-21 08:30 | IPNPDOC ---
Text Note Date of Service The patient was seen on 02/21/17. NOTE Subjective: Had been advanced to a regular diet yesterday. She tolerated diet. No additional episodes of hematochezia. Objective: Vitals: (see below) General: No acute distress, laying comfortably in bed. HEENT: Moist mucous membranes. Neck: No JVD or lymphadenopathy Cardiac: RRR, No murmurs Pulm: Clear to auscultation b/l. No wheezing, rhonchi Abd: Minimal tenderness. Significantly improved from yesterday. No rebound, guarding, or rigidity/ND + BS Ext: No edema or cyanosis Labs (see below) Images: CTA abdomen and pelvis on 02/18/17 Impression: 1. Normal enhancement and appearance to the aorta and arterial vasculature within the abdomen and pelvis. 2. Infectious/inflammatory colitis involving the transverse colon. 3. Small hiatal hernia. 4. Chronic changes including hepatic and renal cysts, and few scattered sigmoid diverticula without acute diverticulitis. CT abdomen and pelvis on 02/17/17 Impression: Acute infectious/inflammatory colitis involving the transverse colon. Diverticulosis without acute diverticulitis. Cholelithiasis. Assessment/Plan 1. Abdominal pain and hematochezia secondary to colitis. Evaluated by surgery with a likely etiology of ischemic colitis. Patient did have a CTA of the abdomen and pelvis with no abnormalities with a enhancements of the arterial vasculature. She was initially started on Rocephin and Flagyl and change to meropenem. Dr. Aguero had been consulted as the CRP and WBCs have been worsening, with recommendations to discontinue antibiotics as it is unlikely to be infectious in nature. We will continue to monitor the patient's clinical status. We'll also continue monitoring hemoglobin. No need for transfusion at this time. CRP and WBC are improving at this time. 2. Hematochezia- likely secondary to colitis. We'll continue to monitor hemoglobin. Had been placed on Protonix. Will likely need outpatient colonoscopy once abdominal pain resolves. 3. Hypertension- controlled. Will discontinue HCTZ for now. 4. History of migraines 5. Hyperlipidemia on statin 6. Neuropathy on gabapentin 7. Posttraumatic stress disorder continue home meds DVT prophy: SCDs Plan to d/c in the enxt 24 hr if continues to improve. VS,Fishbone, I+O VS, Fishbone, I+O Laboratory Tests 02/21/17 05:16 Red Blood Count 4.05, Mean Corpuscular Volume 89.6, Mean Corpuscular Hemoglobin 29.8, Mean Corpuscular Hemoglobin Concent 33.2, Red Cell Distribution Width 14.1 , Neutrophils (%) (Auto) 66.1 H, Lymphocytes (%) (Auto) 25.5, Monocytes (%) ( Auto) 4.3, Eosinophils (%) (Auto) 2.6, Basophils (%) (Auto) 0.4, Neutrophils # ( Auto) 9.8 H, Lymphocytes # (Auto) 4.0, Monocytes # (Auto) 0.6, Eosinophils # ( Auto) 0.4, Basophils # (Auto) 0.1, Calcium Level 9.1, Aspartate Amino Transf ( AST/SGOT) 9 L, Alanine Aminotransferase (ALT/SGPT) 12, Alkaline Phosphatase 74, Total Bilirubin 0.3, Total Protein 7.1, Albumin 3.1 L Vital Signs Date Time Temp Pulse Resp B/P (MAP) Pulse Ox O2 Delivery O2 Flow Rate FiO2 02/21/17 06:00 96.9 78 18 145/91 (109) 96 Room Air I&O- Last 24 Hours up to 6 AM 02/21/17 05:59 Intake Total 895 ml Output Total 600 ml Balance 295 ml YAJAIRA OLIVAS MD Feb 21, 2017 08:30
[2017-02-21] MEDS: VENLAFAXINE **XR** 75MG CAPSULE PO SCH (09:30)
[2017-02-21] MEDS: OMEPRAZOLE 20 MG CAP PO SCH (09:31)
[2017-02-21] MEDS: amLODIPine 5 MG TAB PO SCH (09:31)
[2017-02-21] MEDS: ATORVASTATIN 20 MG TAB PO SCH (09:31)
[2017-02-21] MEDS: PERCOCET 5MG/325MG TAB PO PRN ×2 (09:32→21:26)
[2017-02-21 14:00] VITALS: BP 135/90
[2017-02-21] MEDS: buPROPion (WELLBUTRIN SR) 100 MG SR TAB PO SCH (21:25)
[2017-02-21] MEDS: GABAPENTIN 400 MG CAP PO SCH (21:26)
[2017-02-21 22:00] VITALS: BP 158/94
[2017-02-22 02:00] VITALS: BP 143/94
[2017-02-22 06:00] VITALS: BP 125/85
[2017-02-22 07:09] LABS: BASO # 0.1 K/mm3 (0.0-0.2); BASO % 0.6 % (0.0-1.0); EOS # 0.3 K/mm3 (0.0-0.50); EOS % 3.1 % (0.0-3.0); LARGE UNSTAINED CELL # 0.2 K/mm3 (0.0-0.4); LARGE UNSTAINED CELL % 1.9 % (0.0-4.0); LYMPH # 2.6 K/mm3 (1.5-4.5); MEAN CORPUSCULAR HEMOGLOBIN 29.6 pg (27.0-33.0); MEAN CORPUSCULAR HGB CONC 33.5 g/dl (32.0-36.5); MEAN CORPUSCULAR VOLUME 88.3 fl (80.0-96.0); MONO # 0.5 K/mm3 (0.0-0.8); MONO % 4.9 % (0.0-5.0); NEUTROPHILS # 6.7 K/mm3 (1.8-7.7); NEUTROPHILS % 64.5 % (36.0-66.0); PLATELET COUNT, AUTOMATED 372 k/mm3 (150-450); RED CELL DISTRIBUTION WIDTH 13.9 % (11.5-14.5); WHITE BLOOD COUNT 10.4 K/mm3 (4.0-10.0)
[2017-02-22 07:22] LABS: ALBUMIN 2.9 GM/DL (3.2-5.2); ALBUMIN/GLOBULIN RATIO 0.74 (1.00-1.93); ALKALINE PHOSPHATASE 69 U/L (45-117); ALT/SGPT 15 U/L (12-78); ANION GAP 4 MEQ/L (8-16); AST/SGOT 12 U/L (15-37); BILIRUBIN,TOTAL 0.2 MG/DL (0.2-1.0); BLOOD UREA NITROGEN 15 MG/DL (7-18); CALCIUM LEVEL 8.6 MG/DL (8.5-10.1); CARBON DIOXIDE LEVEL 32 MEQ/L (21-32); CHLORIDE LEVEL 102 MEQ/L (98-107); GLOMERULAR FILTRATION RATE > 60.0 (>51); GLUCOSE, FASTING 101 MG/DL (70-105); MAGNESIUM LEVEL 2.3 MG/DL (1.8-2.4); POTASSIUM SERUM 4.2 MEQ/L (3.5-5.1); SODIUM LEVEL 138 MEQ/L (136-145); TOTAL PROTEIN 6.8 GM/DL (6.4-8.2)
[2017-02-22 07:34] LABS: ERYTHROCYTE SEDIMENTATION RATE 60 mm/hr (0-30)
[2017-02-22] MEDS ORDERED: AMLO5TAB2 PO (08:29)
[2017-02-22 10:00] VITALS: BP 142/86
[2017-02-22] MEDS: VENLAFAXINE **XR** 75MG CAPSULE PO SCH (10:46)
[2017-02-22] MEDS: ATORVASTATIN 20 MG TAB PO SCH (10:46)
[2017-02-22] MEDS: OMEPRAZOLE 20 MG CAP PO SCH (10:47)
[2017-02-22 10:53] VITALS: BP 128/82
[2017-02-22] MEDS: amLODIPine 5 MG TAB PO SCH (10:53)
--- NOTE | 2017-02-22 14:56 | DS.PDOC ---
Discharge Summary General Date of Admission Feb 17, 2017 at 11:16 Date of Discharge 02/22/17 Attending Physician: YAJAIRA OLIVAS MD Specialist/Consultants Involve: Dashawn Dobbs Specialist/Consultants Involve Dr. Aguero Discharge Summary PROCEDURES PERFORMED DURING STAY: None. ADMITTING/DISCHARGE DIAGNOSES: 1. Colitis 2. Hematochezia 3. HTN 4. History of migraines 5. Hyperlipidemia 6. Neuropathy 7. History of posttraumatic stress disorder COMPLICATIONS/CHIEF COMPLAINT: Colitis Rectal Bleed. HISTORY OF PRESENT ILLNESS/HOSPITAL COURSE: . As a 61-year-old female with past medical history of hypertension, post- traumatic stress disorder, history of migraines who presents complaining of diffuse abdominal pain and hematochezia. Over the course of hospitalization patient was noted to have leukocytosis and elevated CRP which have continued to rise. Patient's initial CAT scan was concerning for infectious/inflammatory colitis within the transverse colon. Patient was evaluated by surgery, and Dr. Dobbs believes the patient's likely had an episode of ischemic colitis. Patient did have a CT of the abdomen and pelvis which showed normal enhancement of the arterial vasculature, and the lactic acid was within normal limits. The patient was initially placed on Rocephin and Flagyl and change to meropenem given the rising inflammatory markers. The patient wasn't evaluated by infectious disease and antibiotics were discontinued and this is was unlikely infectious in nature. Hematochezia also spontaneously resolved and Hb remained stable. Since discontinuation antibiotics, the patient's inflammatory markers have significantly decreased. Patient's abdominal pain is significantly improved, and the patient is tolerating a regular diet. Patient will be discharged today in follow-up with Dr. Dobbs for a outpatient colonoscopy. DISCHARGE MEDICATIONS: Please see below. ALLERGIES: Please see below. PHYSICAL EXAMINATION ON DISCHARGE: Vitals: (see below) General: No acute distress, laying comfortably in bed. HEENT: Moist mucous membranes. Neck: No JVD or lymphadenopathy Cardiac: RRR, No murmurs Pulm: Clear to auscultation b/l. No wheezing, rhonchi Abd: NT/ND. + BS Ext: No edema or cyanosis LABORATORY DATA: Please see below. IMAGING: CTA abdomen and pelvis on 02/18/17 Impression: 1. Normal enhancement and appearance to the aorta and arterial vasculature within the abdomen and pelvis. 2. Infectious/inflammatory colitis involving the transverse colon. 3. Small hiatal hernia. 4. Chronic changes including hepatic and renal cysts, and few scattered sigmoid diverticula without acute diverticulitis. CT abdomen and pelvis on 02/17/17 Impression: Acute infectious/inflammatory colitis involving the transverse colon. Diverticulosis without acute diverticulitis. Cholelithiasis. PROGNOSIS: Fair ACTIVITY: As tolerated. DIET: Regular DISCHARGE PLAN/DISPOSITION: 01 Home, Self-Care. DISCHARGE INSTRUCTIONS: 1. Follow-up with PCP and Dr. Nguyen in 1-2 weeks. Return to ED for symptoms recur. DISCHARGE CONDITION: Stable. TIME SPENT ON DISCHARGE: Greater than 30 minutes. Vital Signs/I&Os Vital Signs Date Time Temp Pulse Resp B/P (MAP) Pulse Ox O2 Delivery O2 Flow Rate FiO2 02/22/17 11:00 Room Air 02/22/17 10:53 72 128/82 02/22/17 10:00 97.9 18 97 I&O- Last 24 Hours up to 6 AM 02/22/17 06:00 Intake Total 1562 ml Output Total 1950 ml Balance -388 ml Laboratory Data Labs 24H Laboratory Tests 2 02/22/17 06:51: White Blood Count 10.4H, Red Blood Count 3.96L, Hemoglobin 11.7L, Hematocrit 35.0L, Mean Corpuscular Volume 88.3, Mean Corpuscular Hemoglobin 29.6, Mean Corpuscular Hemoglobin Concent 33.5, Red Cell Distribution Width 13.9, Platelet Count 372, Neutrophils (%) (Auto) 64.5, Lymphocytes (%) (Auto) 25.0, Monocytes ( %) (Auto) 4.9, Eosinophils (%) (Auto) 3.1H, Basophils (%) (Auto) 0.6, Neutrophils # (Auto) 6.7, Lymphocytes # (Auto) 2.6, Monocytes # (Auto) 0.5, Eosinophils # (Auto) 0.3, Basophils # (Auto) 0.1, Large Unclassified Cells % 1.9 , Large Unclassified Cells # 0.2, Erythrocyte Sedimentation Rate 60H, Anion Gap 4L, Glomerular Filtration Rate > 60.0, Blood Urea Nitrogen 15, Creatinine 0.70, Sodium Level 138, Potassium Level 4.2, Chloride Level 102, Carbon Dioxide Level 32, Calcium Level 8.6, Aspartate Amino Transf (AST/SGOT) 12L, Alanine Aminotransferase (ALT/SGPT) 15, Alkaline Phosphatase 69, Total Bilirubin 0.2, Total Protein 6.8, Albumin 2.9L, Magnesium Level 2.3, C-Reactive Protein, Quantitative 4.79H, Albumin/Globulin Ratio 0.74L CBC/BMP Laboratory Tests 02/22/17 06:51 Red Blood Count 3.96 L, Mean Corpuscular Volume 88.3, Mean Corpuscular Hemoglobin 29.6, Mean Corpuscular Hemoglobin Concent 33.5, Red Cell Distribution Width 13.9, Neutrophils (%) (Auto) 64.5, Lymphocytes (%) (Auto) 25.0, Monocytes (%) (Auto) 4.9, Eosinophils (%) (Auto) 3.1 H, Basophils (%) ( Auto) 0.6, Neutrophils # (Auto) 6.7, Lymphocytes # (Auto) 2.6, Monocytes # (Auto ) 0.5, Eosinophils # (Auto) 0.3, Basophils # (Auto) 0.1, Calcium Level 8.6, Aspartate Amino Transf (AST/SGOT) 12 L, Alanine Aminotransferase (ALT/SGPT) 15, Alkaline Phosphatase 69, Total Bilirubin 0.2, Total Protein 6.8, Albumin 2.9 L Microbiology Microbiology 02/17/17 Blood Culture - Final, Complete NO GROWTH AFTER 5 DAYS 02/17/17 Blood Culture - Final, Complete NO GROWTH AFTER 5 DAYS 02/17/17 Gastrointestinal Tract Panel (PCR) - Final, Complete 02/17/17 Urine Culture - Final, Complete Discharge Medications Scheduled (Bupropion HCl Sr) 100 Mg Tab, 100 MG PO QHS, (Reported) Amlodipine Besylate (Amlodipine Besylate) 5 Mg Tab, 5 MG PO DAILY Atorvastatin Calcium (Atorvastatin Calcium) 20 Mg Tab, 20 MG PO DAILY, (Reported ) Gabapentin (Neurontin) 800 Mg Tab, 800 MG PO QHS, (Reported) Hydrochlorothiazide (Hydrochlorothiazide) 25 Mg Tab, 12.5 MG PO DAILY, (Reported ) Omeprazole (Omeprazole) 20 Mg Cap, 20 MG PO DAILY, (Reported) Venlafaxine Hydrochloride (Effexor Xr) 150 Mg Cap, 150 MG PO DAILY, (Reported) Allergies Coded Allergies: No Known Allergies (Unverified , 02/17/17) YAJAIRA OLIVAS MD Feb 22, 2017 14:56
== END 2017-02-22 11:30 | disposition home or self-care (01) | DRG 394 ==
LOC: M ED 08:09 → EDBD 08:09 → M ED INP 11:16 → M PCU 13:40 → M MSPAV 02-19 14:18
PROVIDERS: ADMIT Internal Medicine; ATTEND Internal Medicine
DX: K55.039 Acute (reversible) ischemia of large intestine, extent unspecified (principal); K92.1 Melena; E78.5 Hyperlipidemia, unspecified; I10 Essential (primary) hypertension; G60.9 Hereditary and idiopathic neuropathy, unspecified; F43.10 Post-traumatic stress disorder, unspecified; K80.20 Calculus of gallbladder without cholecystitis without obstruction; K44.9 Diaphragmatic hernia without obstruction or gangrene; K57.30 Diverticulosis of large intestine without perforation or abscess without bleeding; Z79.899 Other long term (current) drug therapy; I34.0 Nonrheumatic mitral (valve) insufficiency; F41.9 Anxiety disorder, unspecified; F32.9 Major depressive disorder, single episode, unspecified; K76.89 Other specified diseases of liver; N28.1 Cyst of kidney, acquired; D72.829 Elevated white blood cell count, unspecified

== ENCOUNTER → 2017-09-04 | Outpatient (CLI) | payer OTHER ==
[2017-09-04 10:53] LABS: BASO # 0.1 10^3/uL (0.0-0.2); BASO % 0.5 % (0.0-1.0); EOS # 0.3 10^3/uL (0.0-0.50); EOS % 2.4 % (0.0-3.0); HEMATOCRIT 37.4 % (36.0-47.0); HEMOGLOBIN 12.4 g/dl (12.0-16.0); IMMATURE GRANULOCYTE % 0.3 % (0-0); LYMPH # 3.5 10^3/uL (1.5-4.5); LYMPH % 28.1 % (24.0-44.0); MEAN CORPUSCULAR HEMOGLOBIN 28.8 pg (27.0-33.0); MEAN CORPUSCULAR HGB CONC 33.2 g/dl (32.0-36.5); MEAN CORPUSCULAR VOLUME 86.8 fl (80.0-96.0); MONO # 0.8 10^3/uL (0.0-0.8); MONO % 6.1 % (0.0-5.0); NEUTROPHILS # 7.7 10^3/uL (1.8-7.7); NEUTROPHILS % 62.6 % (36.0-66.0); PLATELET COUNT, AUTOMATED 427 10^3/uL (150-450); RED BLOOD COUNT 4.31 10^6/uL (4.00-5.40); WHITE BLOOD COUNT 12.3 10^3/uL (4.0-10.0)
[2017-09-04 11:25] LABS: ALBUMIN 3.7 GM/DL (3.2-5.2); ALBUMIN/GLOBULIN RATIO 1.03 (1.00-1.93); ALKALINE PHOSPHATASE 87 U/L (45-117); ALT/SGPT 19 U/L (12-78); ANION GAP 6 MEQ/L (8-16); AST/SGOT 16 U/L (7-37); BILIRUBIN,TOTAL 0.3 MG/DL (0.2-1.0); BLOOD UREA NITROGEN 16 MG/DL (7-18); CALCIUM LEVEL 9.3 MG/DL (8.5-10.1); CARBON DIOXIDE LEVEL 34 MEQ/L (21-32); CHLORIDE LEVEL 104 MEQ/L (98-107); CHOLESTEROL LEVEL 157 MG/DL (<200); CHOLESTEROL RISK RATIO 2.754 (<5); CREATININE FOR GFR 0.89 MG/DL (0.55-1.02); GLOMERULAR FILTRATION RATE > 60.0 (>51); GLUCOSE, FASTING 128 MG/DL (70-100); HDL CHOLESTEROL 57 MG/DL (>40); LDL CHOLESTEROL 62.2 MG/DL (<100); NON-HDL-C 100 MG/DL; POTASSIUM SERUM 3.7 MEQ/L (3.5-5.1); SODIUM LEVEL 144 MEQ/L (136-145); T UPTAKE 32 % (30-39); THYROXINE (T4) 7.4 UG/DL (4.5-12.0); TOTAL PROTEIN 7.3 GM/DL (6.4-8.2); TRIGLYCERIDES LEVEL 189 MG/DL (<150)
== END ==
LOC: M LAB 10:07
DX: I10 Essential (primary) hypertension (principal); E55.9 Vitamin D deficiency, unspecified
CPT/HCPCS: 84443

== ENCOUNTER → 2017-09-12 | Outpatient (CLI) | payer OTHER | LOC: M RAD 10:50 | DX: M54.5 Low back pain (principal); M17.9 Osteoarthritis of knee, unspecified | CPT/HCPCS: 72114 ==